=== PATIENT | female | born 1980 | race Caucasian/White ===

== ENCOUNTER 2023-06-25 06:57 | Emergency (ER) | payer OTHER ==
[2023-06-25] MEDS ORDERED: DECADRON 10MG INJ. IM ONE (07:14)
[2023-06-25 07:19] VITALS: RESP 18; TEMP 98.7
[2023-06-25] MEDS ORDERED: DECADRON 10MG INJ. ONE (07:20)
--- NOTE | 2023-06-25 07:23 | ERPHSYRPT ---
- History of Present Illness Source: patient Exam Limitations: no limitations Physician History: The patient is a 43-year-old who presents with sore throat. She has had fever chills body aches and fatigue. The patient denies any nausea vomiting or any other symptoms and symptoms Timing/Duration: yesterday Allergies/Adverse Reactions: No Known Drug Allergies Allergy (Unverified 06/25/23 07:14) Home Medications: Citalopram Hydrobromide [Celexa] 1 tab PO DAILY 06/25/23 [History] - Review of Systems Constitutional: Fever, Chills, Fatigue Eyes: No Symptoms Ears, Nose, & Throat: Throat Pain Respiratory: No Cough, No Dyspnea Cardiac: No Chest Pain, No Edema, No Syncope Abdominal/Gastrointestinal: No Abdominal Pain, No Nausea, No Vomiting, No Diarrhea Genitourinary Symptoms: No Dysuria Musculoskeletal: No Back Pain, No Neck Pain Skin: No Rash Neurological: No Dizziness, No Focal Weakness, No Sensory Changes Psychological: No Symptoms Endocrine: No Symptoms All Other Systems: Reviewed and Negative - Nursing Vital Signs Nursing Vital Signs: Initial Vital Signs Temperature 98.7 F 06/25/23 07:15 Pulse Rate 123 H 06/25/23 07:15 Respiratory Rate 18 06/25/23 07:15 Blood Pressure 106/62 06/25/23 07:15 O2 Sat by Pulse Oximetry 99 06/25/23 07:15 Pain Scale Pain Intensity 7 - Physical Exam General Appearance: no apparent distress, alert Eye Exam: PERRL/EOMI, eyes nml inspection Ears, Nose, Throat Exam: moist mucous membranes, pharyngeal erythema, tonsillar exudate, No pharynx normal Neck Exam: normal inspection, non-tender, supple, full range of motion Respiratory Exam: normal breath sounds, lungs clear, No respiratory distress Cardiovascular Exam: regular rate/rhythm, normal heart sounds Gastrointestinal/Abdomen Exam: soft, No tenderness Back Exam: normal inspection, No CVA tenderness, No vertebral tenderness Extremity Exam: normal inspection, normal range of motion Neurologic Exam: alert, oriented x 3, cooperative, normal mood/affect, sensation nml, No motor deficits Skin Exam: normal color, warm, dry, No rash Lymphatic Exam: adenopathy SpO2 Interpretation: normal O2 Delivery: Room Air Comments: 06/25/23 07:20 The patient has tonsillar exudate without peritonsillar mass. Patient is handling secretions. No distortion of the anatomy. Pharyngeal erythema - Course Nursing assessment & vital signs reviewed: Yes Ordered Tests: Medication Summary Discontinued Medications Generic Name Dose Route Start Last Admin Trade Name Miki PRN Reason Stop Dose Admin Dexamethasone Sodium Phosphate 10 mg 06/25/23 07:14 06/25/23 07:22 Dexamethasone Sod Phosphate 10 Mg/Ml IM 06/25/23 07:15 10 mg STAT ONE Administration Dexamethasone Sodium Phosphate Confirm 06/25/23 07:20 Dexamethasone Sod Phosphate 10 Mg/Ml Administered 06/25/23 07:21 Dose 10 mg .ROUTE .[employer] ONE Lab/Rad Data: Laboratory Results 06/25/23 Range/Units 07:10 Influenza Type A Ag NEGATIVE (NEGATIVE) Influenza Type B Ag NEGATIVE (NEGATIVE) RSV (PCR) NEGATIVE (NEGATIVE) SARS-CoV-2 (PCR) NEGATIVE (NEGATIVE) Group A Strep Antibody NOT DETECTED (NEGATIVE) - Progress Progress Note: 06/25/23 07:21 No history of immunocompromise. Nontoxic appearance. Patient euvolemic with no trismus. No airway compromise. No change in voice, exudates, enlarged lymph nodes. Able to tolerate PO. Given History and Exam I have low suspicion for this presentation being caused by [employer], RPA, Ludwigs angina, Epiglottitis or Bacterial Tracheitis, EBV, acute HIV, Strep negative but high incidence of strep in the community. Will treat presump tively. 06/25/23 08:35 - Departure Departure Disposition: Home Clinical Impression: Pharyngitis Condition: Stable Critical Care Time: No Instructions: Sore Throat, Adult (DC), Strep Throat (DC) Additional Instructions: Thank you for choosing our Emergency Department for your healthcare! Please take your medicines prescribed as directed and be assured that you follow up with the physician provided or your PCP in the next 1-2 days to assure you are improving. All medical problems cannot be reasonably diagnosed in your ED visit today. Return for any changes or concerns, including if your condition does not improve or you are unable to obtain follow-up. Some final results, including radiology reports, do not return the same day, but are available on the patient portal or can be obtained through your PCP. Prescriptions: Amoxicillin 500 mg Cap [Amoxil 500 mg] 500 mg PO TID #30 cap Amoxicillin 500 mg Cap [Amoxil 500 mg] 500 mg PO TID #30 cap
[2023-06-25 07:56] LABS: INFLUENZA A NEGATIVE (NEGATIVE); INFLUENZA B NEGATIVE (NEGATIVE); RESPIRATORY SYNCTIAL VIRUS NEGATIVE (NEGATIVE); SARS-CoV-2 Xpert Express NEGATIVE (NEGATIVE)
[2023-06-25 08:21] LABS: Group A Strep NOT DETECTED (NEGATIVE)
[2023-06-25 08:47] VITALS: BP 109/59; PULSE 99; O2SAT 98
== END 2023-06-25 08:47 | disposition home or self-care (01) ==
LOC: ED 06:57
DX: J02.9 Acute pharyngitis, unspecified (principal); R50.9 Fever, unspecified; M79.10 Myalgia, unspecified site; R53.83 Other fatigue; Z79.899 Other long term (current) drug therapy
CPT/HCPCS: 0241U; 87651; 96372; 99283; J1100

== ENCOUNTER 2023-10-10 15:41 | Emergency (ER) | payer MEDICAID, OTHER ==
[2023-10-10 16:04] VITALS: PULSE 80; TEMP 97.9
--- NOTE | 2023-10-10 16:19 | ERPHSYRPT ---
- History of Present Illness Time Seen by Provider: 10/10/23 16:15 Historian: patient Exam Limitations: no limitations Patient Subjective Stated Complaint: Pt c/o of lower abdominal pain for the past 4 days Triage Nursing Assessment: Pt was brought to the ER by her , vitals wnl, rates pain as 8/10, pulses normal, skin n/w/d, nauseous on Wednesday but not today, hypoactive bowel sounds heard in all 4 quads, last intake today, last bowel move ment yesterday, urine is dark in color with mild cloudiness, doesn't appear to be in any distress Physician History: Pt c/o of lower abdominal pain for the past 4 days Patient is 43-year-old female without any significant past medical history started having abdominal pain on Wednesday. Pain was mainly in her hypogastric as well as left lower quadrant area. Pain was cramping in nature. Patient denies any blood in the stool or urine. Patient also denies any fever or chills nausea or vomiting. Patient never have this type of pain before. Patient has still regular menstrual period's. Timing/Duration: day(s) (3 days) Activities at Onset: none Quality: cramping Abdominal Pain Onset Location: LLQ, suprapubic Pain Radiation: no radiation Severity of Pain-Max: moderate Severity of Pain-Current: moderate Associated Symptoms: denies symptoms Previous symptoms: no prior history Body Map: 1 - area of pain Allergies/Adverse Reactions: No Known Drug Allergies Allergy (Verified 10/10/23 16:04) Home Medications: Citalopram Hydrobromide [Celexa] 1 tab PO DAILY 06/25/23 [History] Hx Influenza Vaccination/Date Given: No Hx Pneumococcal Vaccination/Date Given: No Travel Risk - International Travel Have you traveled outside of the country in past 3 weeks: No - Emerging Infectious Disease Are you exhibiting symptoms associated with any current EIDs: Yes Symptoms: Abdominal Pain - Review of Systems Constitutional: No Fever, No Chills Eyes: No Symptoms Ears, Nose, & Throat: No Symptoms Respiratory: No Cough, No Dyspnea Cardiac: No Chest Pain, No Edema, No Syncope Abdominal/Gastrointestinal: Abdominal Pain, No Nausea, No Vomiting, No Diarrhea Genitourinary Symptoms: No Dysuria Musculoskeletal: No Back Pain, No Neck Pain Skin: No Rash Neurological: No Dizziness, No Focal Weakness, No Sensory Changes Psychological: No Symptoms Endocrine: No Symptoms All Other Systems: Reviewed and Negative - Past Medical History Pertinent Past Medical History: Yes Neurological History: No Pertinent History ENT History: No Pertinent History Cardiac History: No Pertinent History Respiratory History: No Pertinent History Endocrine Medical History: No Pertinent History Musculoskeletal History: No Pertinent History GI Medical History: No Pertinent History History: No Pertinent History Psycho-Social History: Anxiety, Depression Female Reproductive Disorders: No Pertinent History - Past Surgical History Past Surgical History: Yes Neuro Surgical History: No Pertinent History Cardiac: No Pertinent History Respiratory: No Pertinent History Gastrointestinal: No Pertinent History Genitourinary: No Pertinent History Musculoskeletal: No Pertinent History Female Surgical History: No Pertinent History - Female History Hx Last Menstrual Period: 3 weeks ago Hx Now: No - Social History Smoking Status: Never smoker Exposure to second hand smoke: No Drug Use: none Patient Lives Alone: No - Nursing Vital Signs Nursing Vital Signs: Initial Vital Signs Temperature 97.9 F 10/10/23 15:53 Pulse Rate 80 10/10/23 15:53 Blood Pressure 120/69 10/10/23 15:53 O2 Sat by Pulse Oximetry 100 10/10/23 15:53 Pain Scale Pain Intensity 9 - Physical Exam General Appearance: no apparent distress, alert Eye Exam: PERRL/EOMI, eyes nml inspection Ears, Nose, Throat Exam: normal ENT inspection, pharynx normal, moist mucous membranes Neck Exam: normal inspection, non-tender, supple, full range of motion Respiratory Exam: normal breath sounds, lungs clear, No respiratory distress Cardiovascular Exam: regular rate/rhythm, normal heart sounds Gastrointestinal/Abdomen Exam: soft, tenderness (LLQ), No mass Back Exam: normal inspection, normal range of motion, No CVA tenderness, No vertebral tenderness Extremity Exam: normal inspection, normal range of motion, pelvis stable Neurologic Exam: alert, oriented x 3, cooperative, normal mood/affect, nml cerebellar function, sensation nml, No motor deficits Skin Exam: normal color, warm, dry SpO2: 100 - Course Nursing assessment & vital signs reviewed: Yes - CT Exams Abdomen/Pelvis CT Interpretation: Tele-radiologist Report Ordered Tests: Active Orders 24 hr Category Date Time Status ABDOMEN AND PELVIS W/0 CONTRAS [CT] Stat Exams 10/10/23 16:35 Completed AMYLASE Stat Lab 10/10/23 16:25 Completed CBC W DIFF Stat Lab 10/10/23 16:25 Completed CMP Stat Lab 10/10/23 16:25 Completed CULTURE,URINE Stat Lab 10/10/23 16:17 Received LIPASE Stat Lab 10/10/23 16:25 Completed UA W/RFX UR CULTURE Stat Lab 10/10/23 16:17 Completed Medication Summary Discontinued Medications Generic Name Dose Route Start Last Admin Trade Name Freq PRN Reason Stop Dose Admin Sodium Chloride 1,000 mls @ 999 mls/hr 10/10/23 16:10 10/10/23 16:41 Sodium Chloride 0.9% 1000 Ml IV 10/10/23 17:10 999 mls/hr .Q1H1M STA Administration Sodium Chloride Confirm 10/10/23 16:30 Sodium Chloride 0.9% 1000 Ml Administered 10/10/23 16:31 Dose 1,000 mls @ ud .ROUTE .[employer] ONE Ceftriaxone Sodium 1 gm in 100 mls @ 200 mls/hr 10/10/23 17:03 10/10/23 17:17 Rocephin 1 Gm / 100 Ml Nacl IV 10/10/23 17:32 200 mls/hr STAT ONE 200 mls/hr Administration Ceftriaxone Sodium Confirm 10/10/23 17:15 Rocephin 1 Gm / 100 Ml Nacl Administered 10/10/23 17:16 Dose 1 gm in 100 mls @ ud IV .[facility] ONE Morphine Sulfate 4 mg 10/10/23 16:10 10/10/23 16:45 Morphine Sulfate 4 Mg/Ml Injection IV 10/10/23 16:11 4 mg STAT ONE Administration Morphine Sulfate Confirm 10/10/23 16:30 Morphine Sulfate 4 Mg/Ml Injection Administered 10/10/23 16:31 Dose 4 mg .ROUTE .[employer] ONE Ondansetron HCl 4 mg 10/10/23 16:10 10/10/23 16:42 Ondansetron Hcl 4 Mg/2 Ml Vial IV 10/10/23 16:11 4 mg STAT ONE Administration Ondansetron HCl Confirm 10/10/23 16:29 Ondansetron Hcl 4 Mg/2 Ml Vial Administered 10/10/23 16:30 Dose 4 mg .ROUTE .[employer] ONE Pantoprazole Sodium 40 mg 10/10/23 16:10 10/10/23 16:44 Pantoprazole 40 Mg Vial IV 10/10/23 16:11 40 mg STAT ONE Administration Pantoprazole Sodium Confirm 10/10/23 16:29 Pantoprazole 40 Mg Vial Administered 10/10/23 16:30 Dose 40 mg IV .STK-MED ONE Lab/Rad Data: Laboratory Result Diagrams 10/10/23 16:25 10/10/23 16:25 Laboratory Results 10/10/23 10/10/23 10/10/23 Range/Units 16:25 16:25 16:17 WBC 10.6 H (4.0-10.5) x10^3/uL RBC 4.10 (4.1-5.4) x10^6/uL Hgb 9.3 L (12.0-16.0) g/dL Hct 30.5 L (35-47) % MCV 74.4 L (78-100) fL MCH 22.7 L (26-32) pg MCHC 30.5 L (32-36) g/dL RDW 16.9 H (11.5-14.0) % Plt Count 262 (150-450) x10^3/uL MPV 10.3 (7.5-11.0) fL Gran % 63.1 (36.0-66.0) % Immature Gran % (Auto) 0.4 (0.00-0.4) % Nucleat RBC Rel Count 0.0 (0.00-0.1) % Eos # (Auto) 0.10 (0-0.5) x10^3/uL Immature Gran # (Auto) 0.04 H (0.00-0.03) x10^3u/L Absolute Lymphs (auto) 2.29 (1.0-4.6) x10^3/uL Absolute Monos (auto) 1.42 H (0.0-1.3) x10^3/uL Absolute Nucleated RBC 0.00 (0.00-0.01) x10^3u/L Lymphocytes % 21.6 L (24.0-44.0) % Monocytes % 13.4 H (0.0-12.0) % Eosinophils % 0.9 (0.00-5.0) % Basophils % 0.6 (0.0-0.4) % Absolute Granulocytes 6.71 (1.4-6.9) x10^3/uL Basophils # 0.06 (0-0.4) x10^3/uL Sodium 139 (135-145) mmol/L Potassium 4.6 (3.5-5.1) mmol/L Chloride 108 H (98-107) mmol/L Carbon Dioxide 27 (22-30) mmol/L Anion Gap 8.9 (5-15) MEQ/L BUN 7 (7-17) mg/dL Creatinine 0.56 (0.52-1.04) mg/dL Estimated GFR 117.5 ML/MIN Glucose 96 (74-106) mg/dL Calcium 8.7 (8.4-10.2) mg/dL Total Bilirubin 0.40 (0.2-1.3) mg/dL AST 21 (14-36) U/L ALT 14 (0-35) U/L Alkaline Phosphatase 52 (38-126) U/L Serum Total Protein 7.0 (6.3-8.2) g/dL Albumin 4.0 (3.5-5.0) g/dL Amylase 62 (30-110) U/L Lipase 63 (23-300) U/L Urine Color Yellow (Yellow) Urine Appearance Cloudy A (Clear) Urine pH 6.5 (4.6-8.0) Ur Specific [place] 1.025 (1.005-1.030) Urine Protein Trace A (Negative) Urine Glucose (UA) Negative (Negative) mg/dL Urine Ketones Negative (Negative) Urine Blood Negative (Negative) Urine Nitrite Negative (Negative) Urine Bilirubin Negative (Negative) Urine Urobilinogen 1.0 A (0.2) mg/dL Ur Leukocyte Esterase Large A (Negative) U Hyaline Cast (Auto) None Seen (0-2) /LPF Urine Microscopic RBC 0-2 (0-5) /HPF Urine Microscopic WBC 6-10 A (0-5) /HPF Ur Epithelial Cells Moderate A (None Seen) /HPF Urine Bacteria Few A (None Seen) /HPF Urine Yeast (Budding) Few A (None Seen) /HPF Urine Culture Reflexed YES (NO) - Departure Departure Disposition: Home Clinical Impression: Hemorrhagic cyst of left ovary UTI (urinary tract infection) Qualifiers: Urinary tract infection type: acute pyelonephritis Qualified Code(s): N10 - Acute pyelonephritis Condition: Stable Critical Care Time: No Referrals: FREDI ROBLES DO [Primary Care Provider] - Follow up/PCP as directed Instructions: Urinary Tract Infection, Adult (DC), Ovarian Cyst (DC) Additional Instructions: Discharge/Care Plan MONICA BROWN was seen on 10/10/23 in the Emergency Room. The patient was counseled regarding Diagnosis,Lab results, Imaging studies, need for follow up and when to return to the Emergency Room. Prescriptions given: Discharge Note I have spoken with the patient and/or caregivers. I have explained the patient's condition, diagnosis and treatment plan based on the information available to me at this time. I have answered the patient's and/or caregiver's questions and a ddressed any concerns. The patient and/or caregivers have as good understanding of the patient's diagnosis, condition and treatment plan as can be expected at this point. The vital signs have been stable. The patient's condition is stable and appropriate for discharge from the emergency department. The patient will pursue further outpatient evaluation with the primary care physician or other designated or consulting physician as outlined in the discharge instructions. The patient and/or caregivers are agreeable to this plan of care and follow-up instructions have been explained in detail. The patient and/or caregivers have received these instruction. The patient/and or caregivers are aware that any significant change in condition or worsening of symptoms should prompt an immediate return to this or the closest emergency department or call 911. MONICA BROWN was seen on 10/10/23 n the Emergency Room. At that time you were treated for an emergent condition, during your visit Laboratory, Radiology and/or other procedures may have been ordered. It is very important that you follow-up with your Primary Care Physician FREDI ROBLES DO within the next 24-48 hours to review your Emergency Room visit and the final results of testing that was ordered. Some test results such as Urine Cultures, Blood Cultures, and other cultures if ordered will not be finalized for 24-48 hours. If you do not have a Primary Care Provider please call the medical records department at [phone] ext [phone] to obtain a copy of your results or you may sign into our patient portal to obtain these results by visiting us @ [email or web address] and completing the following steps: 1. Click on the Patient Portal link 2. Click the Patient Self Enrollment Link to complete the enrollment form and entering your 3. Once the enrollment form is completed you will receive an email with a temporary ID and password at the email address you provided. 4. Next choose a user name and password. Your user name must be at least 4 characters long and your password must be at least 4 characters long. 5. Choose a security question from the list and provide your answer to the question. If you already have signed into the Health Portal you may access your Health Care Information 21/12 by the following steps: 1. Login to our website @ [email or web address] 2. Enter your original user name and password. FAQS The [facility] Portal is an online tool that contains your Lab Results, Radiology Reports, Visit History, Discharge Instructions and Health Summary Lab and Radiology Results will not be available for 72 hours on the portal. The Portal is a secure site, passwords are encryted and URLs are re-written so they cannot be copied and pasted. You and authorized family members are the only ones who can access your Portal. Also there is a timeout feature that protects your information if you leave the Portal page open. If you have technical difficulty please use the Contact Us link on the page this will allow you to submit any questions you have regarding the Portal or you may contact the Medical Record Department at [phone] ext [phone]. Prescriptions: Ciprofloxacin [Cipro 500 MG] 500 mg PO BIDAC #20 tablet Mefenamic Acid 250 mg PO QID #20 cap
[2023-10-10] MEDS ORDERED: PROTONIX 40 MG IV IV ONE (16:29)
[2023-10-10] MEDS ORDERED: Zofran 4 MG/2 ML VIAL ONE (16:29)
[2023-10-10 16:30] LABS: Absolute Neutrophil Ct (ANC) 6.71 x10^3/uL (1.4-6.9); BASOPHIL % 0.6 % (0.0-0.4); Basophil (Absolute #) 0.06 x10^3/uL (0-0.4); Eosinophil % 0.9 % (0.00-5.0); Hematocrit 30.5 % (35-47); Hemoglobin 9.3 g/dL (12.0-16.0); IMMATURE GRAN # 0.04 x10^3u/L (0.00-0.03); IMMATURE GRAN % 0.4 % (0.00-0.4); Lymphocyte (Absolute #) 2.29 x10^3/uL (1.0-4.6); Lymphocytes % 21.6 % (24.0-44.0); Mean Cell Volume 74.4 fL (78-100); Mean Corpuscular Hemoglobin 22.7 pg (26-32); Mean Corpuscular Hgb Concent. 30.5 g/dL (32-36); Mean Platelet Volume 10.3 fL (7.5-11.0); Monocyte (Absolute #) 1.42 x10^3/uL (0.0-1.3); Monocytes % 13.4 % (0.0-12.0); Neutrophil % 63.1 % (36.0-66.0); Platelet Count 262 x10^3/uL (150-450); Red Cell Distribution Width 16.9 % (11.5-14.0); White Blood Count 10.6 x10^3/uL (4.0-10.5)
[2023-10-10] MEDS ORDERED: Sodium Chloride 0.9% 1000 ML 1,000 ML ONE (16:30)
[2023-10-10] MEDS ORDERED: MORPHINE SULFATE 4 MG INJ ONE (16:30)
[2023-10-10] MEDS: Sodium Chloride 0.9% 1000 ML 1,000 ML IV STA (16:41)
[2023-10-10] MEDS: Zofran 4 MG/2 ML VIAL IV ONE (16:42)
[2023-10-10] MEDS: PROTONIX 40 MG IV IV ONE (16:44)
[2023-10-10] MEDS: MORPHINE SULFATE 4 MG INJ IV ONE (16:45)
[2023-10-10 16:46] LABS: ANION GAP 8.9 MEQ/L (5-15); BILIRUBIN,TOTAL 0.4 mg/dL (0.2-1.3); Calcium 8.7 mg/dL (8.4-10.2); Creatinine 1 0.56 mg/dL (0.52-1.04); EST GLOMERULAR FILTRATION RATE 117.5 ML/MIN; Potassium 4.6 mmol/L (3.5-5.1)
[2023-10-10 16:51] LABS: ADD URINE CULTURE? YES (NO); Appearance Cloudy (Clear); Bacteria Few /HPF (None Seen); Bilirubin Negative (Negative); Blood Negative (Negative); Budding Yeast Few /HPF (None Seen); Epithelial Cells Moderate /HPF (None Seen); Glucose, Urine Negative (Negative); Hyaline Casts None Seen /LPF (0-2); Ketones Negative (Negative); Leukocyte Esterase Large (Negative); Nitrite Negative (Negative); Ph 6.5 (4.6-8.0); Protein,Urine Dip Trace (Negative); RBC 0-2 /HPF (0-5); Specific Gravity 1.025 (1.005-1.030)
[2023-10-10] MEDS ORDERED: ROCEPHIN 1 GM / 100 ML NaCl 1 GM/100 ML IVPB IV ONE (17:15)
[2023-10-10] MEDS: ROCEPHIN 1 GM / 100 ML NaCl 1 GM/100 ML IVPB IV ONE (17:17)
[2023-10-10 18:04] VITALS: BP 100/59
--- NOTE | 2023-10-10 18:37 | XRAY ---
CLINICAL HISTORY: left lower quadrant pain COMPARISON: None. TECHNIQUE: CT scan of the abdomen and pelvis was performed without IV contrast. Coronal and sagittal reconstructive images were also obtained. One of the following dose reduction techniques was utilized for this exam: Automated exposure control, adjustment of the mA and/or kV according to patient size, and use of iterative reconstruction. FINDINGS: Pelvis: A well defined left adenxal complex cystic mass extending anterior to the uterus at midline, measuring 5x4.3x3.5 cm, with central echogenic component, the left ovary not seen separately. The uterus is unremarkable, no focal lesion. Unremarkable right ovary. No free fluid is detected. The urinary bladder is unremarkable. The rectosigmoid colon is unremarkable. No evidence of pelvic lymphadenopathy. The osseous structures in the pelvis, lower rib cage and lumbar spine show no abnormality. No lytic or sclerotic bone lesions. Abdomen: The liver is normal in size. No focal or diffuse parenchymal abnormality. The portal vein, intrahepatic biliary radicals and the bile ducts are normal. The spleen, pancreas, and adrenal glands are unremarkable. The kidneys are unremarkable. They are normal in size and shape. No calculi or hydronephrosis. The gallbladder is normal. No pericholecystic collection or radio dense calculi in the gall bladder. The ascending colon, the transverse colon, the descending colon, visualized small bowel loops are unremarkable. There is no evidence of significant enlargement of the mesenteric or retroperitoneal lymph nodes. Appendix is normal. Tiny pulmonary nodule is noted at right lower lobe, measuring 2 mm. IMPRESSION: 1. Left ovarian complex cystic lesion with echogenic component suspicious of hemorrhagic ovarian cyst, for ultrasound correlation. 2. Unremarkable rest of abdomen. Electronically Signed by: Domitila Maciel MD. (10/10/2023 18:32:50 EDT)
[2023-10-10 18:41] VITALS: O2SAT 100
== END 2023-10-10 18:58 | disposition home or self-care (01) ==
LOC: ED 15:41
DX: N10 Acute pyelonephritis (principal); N83.202 Unspecified ovarian cyst, left side; R10.32 Left lower quadrant pain; Z79.899 Other long term (current) drug therapy
CPT/HCPCS: 36415; 74176; 80053; 81001; 82150; 83690; 85025; 87086; 96365; 96374; 96375; 99284; J0696; J2270; J2405

== ENCOUNTER 2024-01-03 23:25 | Emergency (ER) | payer SELFPAY ==
[2024-01-04 02:09] VITALS: TEMP 98.2
--- NOTE | 2024-01-04 03:06 | ERPHSYRPT ---
- History of Present Illness Time Seen by Provider: 01/04/24 02:40 Source: patient Exam Limitations: no limitations Patient Subjective Stated Complaint: pt reports right jaw pain starting today, believes she may have an infected tooth Triage Nursing Assessment: pt is aox3, pupils perrl, afebrile, resps easy and non labored, cap refill < 3 seconds, radial pulses strong and equal, pt skin pink warm dry. pt may have some minimal swelling to the right jaw/face. pt is unable to open her mouth wide enough for this nurse to visually inspect the molars. Timing/Duration: today Severity: mild Allergies/Adverse Reactions: No Known Drug Allergies Allergy (Verified 10/10/23 16:04) Home Medications: Citalopram Hydrobromide [Celexa] 1 tab PO DAILY 06/25/23 [History] Hx Tetanus, Diphtheria Vaccination/Date Given: Yes Hx Influenza Vaccination/Date Given: No Hx Pneumococcal Vaccination/Date Given: No Immunizations Up to Date: Yes Travel Risk - International Travel Have you traveled outside of the country in past 3 weeks: No - Emerging Infectious Disease Are you exhibiting symptoms associated with any current EIDs: No Symptoms: Abdominal Pain - Review of Systems Eyes: No Symptoms Ears, Nose, & Throat: Mouth Pain Respiratory: No Symptoms Cardiac: No Symptoms Abdominal/Gastrointestinal: No Symptoms Genitourinary Symptoms: No Symptoms Musculoskeletal: No Symptoms - Past Medical History Pertinent Past Medical History: Yes Neurological History: No Pertinent History ENT History: No Pertinent History Cardiac History: No Pertinent History Respiratory History: No Pertinent History Endocrine Medical History: No Pertinent History Musculoskeletal History: No Pertinent History GI Medical History: No Pertinent History History: No Pertinent History Psycho-Social History: Anxiety, Depression Female Reproductive Disorders: No Pertinent History - Past Surgical History Past Surgical History: Yes Neuro Surgical History: No Pertinent History Cardiac: No Pertinent History Respiratory: No Pertinent History Gastrointestinal: No Pertinent History Genitourinary: No Pertinent History Musculoskeletal: No Pertinent History Female Surgical History: Tubal Ligation - Female History Hx Last Menstrual Period: 12/30/23 Hx Now: No - Social History Smoking Status: Never smoker Exposure to second hand smoke: No Drug Use: none Patient Lives Alone: No - Social Determinants of Health Will the patient participate in the screening: Yes Do you worry about a steady place to live?: No Do you have any problems with any of the following?: No known problems In the past 12 months,have you had to go without utilities?: No Transportation Issues: No Has anyone in your support network made you feel unsafe?: No Have you or anyone in your house had to go without enough: No - Nursing Vital Signs Nursing Vital Signs: Initial Vital Signs Temperature 98.2 F 01/04/24 02:02 Pulse Rate 57 L 01/04/24 02:02 Respiratory Rate 18 01/04/24 02:02 Blood Pressure 123/56 01/04/24 02:02 O2 Sat by Pulse Oximetry 100 01/04/24 02:02 Pain Scale Pain Intensity 10 - Physical Exam General Appearance: no apparent distress Eye Exam: PERRL/EOMI Ears, Nose, Throat Exam: other (Dental caries noted in the right upper jaw with minimal soft tissue swelling) Respiratory Exam: normal breath sounds Cardiovascular Exam: regular rate/rhythm Neurologic Exam: alert, oriented x 3 Skin Exam: normal color SpO2: 100 Ordered Tests: Medication Summary Discontinued Medications Generic Name Dose Route Start Last Admin Trade Name Freq PRN Reason Stop Dose Admin Ceftriaxone Sodium 1,000 mg 01/04/24 02:54 Ceftriaxone Sodium 1000 Mg Inj Vial IM 01/04/24 02:55 STAT ONE - Progress Progress Note: Patient was seen and evaluated for right-sided facial pain secondary to her dental caries she was given Rocephin 1 g IM she will be discharged home with Keflex and informed of the need for follow-up with her primary care provider and dentist 01/04/24 03:06 Medical Desision Making - Discussion of managment Agreed on:: need for follow-up - Departure Departure Disposition: Home Clinical Impression: Dental caries Condition: Stable Critical Care Time: No Referrals: DOCTOR,NO FAMILY [Primary Care Provider] - Follow up/PCP as directed Prescriptions: Cephalexin Mh 500 mg [Keflex 500 mg] 500 mg PO TID #21 cap
[2024-01-04] MEDS ORDERED: XYLOCAINE 1% HCL 20 ML MDV ONE (03:34)
[2024-01-04] MEDS ORDERED: Rocephin 1000 MG INJ ONE (03:34)
[2024-01-04] MEDS: Rocephin 1000 MG INJ IM ONE (03:38)
[2024-01-04 03:45] VITALS: BP 114/67; PULSE 64; RESP 16; O2SAT 98
== END 2024-01-04 04:05 | disposition home or self-care (01) ==
LOC: ED 23:25
DX: K02.9 Dental caries, unspecified (principal); R68.84 Jaw pain; Z79.899 Other long term (current) drug therapy
CPT/HCPCS: 96372; 99282; J0696